=== PATIENT | female | born 1955 | race Caucasian/White ===

== ENCOUNTER 2018-11-10 04:48 | Day surgery (SDC) | payer MEDICARE, OTHER ==
[2018-11-10] MEDS ORDERED: LACTATED RINGERS 1,000 ML IV ONE (06:33)
[2018-11-10] MEDS ORDERED: LEVALBUTEROL NEB 1.25 MG/3 ML VIAL.NEB IH ONE (06:34)
[2018-11-10] MEDS ORDERED: MIDAZOLAM HCL 2 MG/2 ML VIAL ONE (08:48)
[2018-11-10] MEDS ORDERED: fentaNYL CITRATE/PF 100 MCG/2 ML INJ. ONE (08:48)
[2018-11-10] MEDS ORDERED: LACTATED RINGERS 1,000 ML IV.SOLN IV ONE (08:48)
[2018-11-10] MEDS ORDERED: KETAMINE HCL 10 MG/ML ML IJ ONE (08:48)
== END 2018-11-10 10:30 | disposition home or self-care (01) ==
LOC: OPSURG 04:48
PROVIDERS: ATTEND Physical Medicine & Rehabilitation
DX: M47.817 Spondylosis without myelopathy or radiculopathy, lumbosacral region (principal)
CPT/HCPCS: 64635; 64636; J1815; J2250; J3010; J7120; J7614

== ENCOUNTER 2019-08-09 08:35 | Day surgery (SDC) | payer MEDICARE, OTHER ==
[2019-08-09] MEDS ORDERED: 0.9 % SODIUM CHLORIDE PF 10 ML VIAL IJ ONE (08:48)
[2019-08-09] MEDS ORDERED: LACTATED RINGERS 1,000 ML IV.SOLN IV ONE (08:48)
[2019-08-09] MEDS ORDERED: CLINDAMYCIN PHOSPHATE 900 MG/6 ML VIAL ONE (08:48)
[2019-08-09] MEDS ORDERED: HYDROcodone /APAP 5/325 1 EACH TABLET ONE (08:48)
[2019-08-09] MEDS ORDERED: MIDAZOLAM HCL 2 MG/2 ML VIAL ONE (08:48)
[2019-08-09] MEDS ORDERED: fentaNYL CITRATE/PF 100 MCG/2 ML INJ. ONE (08:48)
[2019-08-09] MEDS ORDERED: LIDOCAINE HCL 1%/EPI. (1:100,000) MDV 20ML VIAL IJ ONE (08:48)
== END 2019-08-09 11:45 | disposition home or self-care (01) ==
LOC: OPSURG 08:35
PROVIDERS: ATTEND Physical Medicine & Rehabilitation
DX: M47.26 Other spondylosis with radiculopathy, lumbar region (principal); M54.5 Low back pain
CPT/HCPCS: 63650; A9270; J2250; J3010; J7120